=== PATIENT | male | born 1950 | race Caucasian/White ===

== ENCOUNTER 2017-12-09 07:00 | Day surgery (SDC) | payer OTHER ==
--- NOTE | 2017-12-08 15:39 | RAD REPORT ---
EXAM DESCRIPTION: RADOP - Outpt Chest Pa/Lat (2 Views) - 12/08/2017 3:28 pm CLINICAL HISTORY: Preop chest, pending repair or replacement of existing pacemaker COMPARISON: August 2017 TECHNIQUE: PA and lateral views of the chest were obtained. FINDINGS: The lungs are normal volume. No mass or consolidation. Scarring or atelectasis in the righ t base present with small right pleural effusion. Heart size and pulmonary vasculature within normal limits. Trachea is midline. No pneumothorax. No acute bony finding noted. No acute aortic finding. Single lead pacemaker present right subclavian access. IMPRESSION: Scarring or atelectasis in the right base with small pleural effusion. No acute failure findings.
--- NOTE | 2017-12-08 16:25 | EKG ---
Test Date: 2017-12-08 Test Time: 15:10:38 Etcher Apprentice Photoengraving: NERIS MEASUREMENT RESULTS: Intervals: Rate: 62 PA: QRSD: 166 QT: 480 QTc: 487 [place]: P: PA: QRS: 20 T: 60 INTERPRETIVE STATEMENTS: Electronic ventricular pacemaker Compared to ECG 08/16/2017 22:51:27 Atrial fibrillation no longer present Electronically Signed On 12-08-17 16:24:18 CDT by Ori Gore
[2017-12-08 16:34] LABS: Absolute Lymphocytes (CBC) 0.8 K/uL (0.7-4.9); Absolute Monocytes 0.6 K/uL (0.1-1.3); Basophils % 0.7 % (0-1.3); Eosinophils % 2.1 % (0-4.4); Hematocrit 25.4 % (39.6-49.0); Lymphocytes % 11.7 % (15.3-44.8); MCH 25.4 pg (27.0-35.0); MPV 8.3 fL (7.6-11.3); Monocytes % 9.4 % (3.3-12.3); Protime INR 1.48; RBC Red Blood Cell Count 3.13 M/uL (4.33-5.43)
[~2017-12-09 07:00] MED LIST: CEFAZOLIN IRR ONE; IRR IRR ONE; NACL IRR ONE; VANCOMYCIN IRR ONE
[2017-12-09] MEDS ORDERED: LIDOCAINE 1% 20 ML MDV ONE (07:29)
[2017-12-09] MEDS ORDERED: HEPA 1000U/500MLS 1,000 UNIT/500 ML BAG IV ONE (07:29)
[2017-12-09] MEDS ORDERED: CEFAZOLIN/SWI 1gm 1 GM/10 ML SYR ONE (07:42)
[2017-12-09] MEDS ORDERED: GENTAMICIN 80 MG/100 ML BAG 80 MG/100 ML BAG IV ONE (07:42)
[2017-12-09] MEDS ORDERED: NA CHLORIDE 0.9% 500 ML ONE (07:42)
[2017-12-09] MEDS ORDERED: MIDAZOLAM HCL 2 MG/2 ML INJ ONE ×2 (07:59→08:42)
[2017-12-09] MEDS ORDERED: ATROPINE SULF 1 MG/10 ML SYR IV ONE (07:59)
[2017-12-09] MEDS ORDERED: FENTANYL CITR 100 MCG/2 ML ONE (07:59)
[2017-12-09 10:25] VITALS: BP 123/69; O2SAT 96
[2017-12-09 10:26] VITALS: TEMP 97
--- NOTE | 2017-12-09 20:21 | OP ---
Surgeon: Misha Smith MD Primary Care Physician: Dr. Kramer. Procedure Performed: Pacemaker generator replacement. Indication: Pacemaker is at elective replacement interval. Procedure In Detail: The patient was brought to the cardiac laboratory development technician in a fasting state, sedated wit h Versed and fentanyl. His last Eliquis dose was 12/05/2017. The right pectoral region was prepared and draped in the usual sterile fashion. A 1% lidocaine was used to anesthetize the skin. A sharp incision was made through the skin. Blunt dissection was carried down to the pocket. The pocket was opened and the old pacemaker generator removed. The pocket had to be enlarged slightly to accommoda te the new pacemaker generator. The lead was removed from the old device, implanted in the new devic e. Then the lead was tested through the device telemetry and found to be adequate. We irrigated the pocket. We put a sponge containing antibiotics in it for about 1 minute, removed the sponge, irriga adore, placed the device in the pocket. The pocket was then closed with a layer of 0 Polysorb, subcuta neous layer of 3-0 Polysorb, and skin layer of stainless steel wade. The new generator we used is a [employer] bad[employer] distiller operator, model [id number], serial [id number], implanted today , December 09, 2017. The lead is a right ventricular lead, [employer] bad[employer] distiller operator, model 1226T/60, s erial [id number], implanted February 17, 1992, explanted generator is a [employer] badger distiller operator, model 5620, s erial [id number], implanted October 13, 2011, explanted today, December 09, 2017. Electrophysiologic Data: The measured R-wave was 7 mV. The impedance 510 ohms. Pacing threshold 0. 75 V at 0.5 millisecond pulse width. The device is set in the VVIR mode, rate 70-130. Complications: None. Estimated Blood Loss: 20 cc. Camera Repairer: Ofelia Stahl. MARIA ELENA/TATY Voice ID: [id number] Report ID: [id number]
== END 2017-12-09 10:26 | disposition home or self-care (01) ==
LOC: CCL 07:00
PROVIDERS: ATTEND Internal Medicine
PROC: 0JPT0PZ Removal of Cardiac Rhythm Related Device from Trunk Subcutaneous Tissue and Fascia, Open Approach (ICD-10-PCS; principal; 2017-12-09)
PROC: 0JH604Z Insertion of Pacemaker, Single Chamber into Chest Subcutaneous Tissue and Fascia, Open Approach (ICD-10-PCS; 2017-12-09)
DX: Z45.010 Encounter for checking and testing of cardiac pacemaker pulse generator [battery] (principal); I25.10 Atherosclerotic heart disease of native coronary artery without angina pectoris; E11.9 Type 2 diabetes mellitus without complications; Z87.891 Personal history of nicotine dependence; Z88.2 Allergy status to sulfonamides; Z88.6 Allergy status to analgesic agent
CPT/HCPCS: 33227; 36415; 71046; 80048; 82962; 85025; 85610; 85730; 88300; 93005; J0690; J1580; J2250; J3010